=== PATIENT | male | born 1955 | race Caucasian/White ===

== ENCOUNTER 2016-06-01 11:41 | Emergency (ER) | payer SELFPAY ==
[~2016-06-01] VITALS: Ht 175.2 cm; Wt 61.7 kg
[~2016-06-01 11:41] MED LIST: ANAPROX DS550 MG PO; ASPIR LOW81 MG PO; AUGMENTIN 875 M1 TAB PO; BETIMOL5 M1 OU; CELEXA20 MG PO; CIPRO500 MG PO; CIPRODEX 0.3%-7.5 ML OT; CLINDAMYCIN HC300 MG PO; CLONIDINE HCL0.1 MG PO; CREON 60,000U/1 CAP PO; DOXYCYCLINE100 M3 PO; EFFIENT5 MG PO; FAMOTIDINE20 M1 PO; FLAGYL500 MG PO; FLORASTOR 33 MG1 CAP PO; HYDROCODONE BIT1 T11 PO; IMODIUM A-D2 M2 PO; LANTUS100 U/ML SC; LIPITOR40 MG PO; LISINOPRIL PO; LISINOPRIL10 M1 PO; LISINOPRIL10 MG PO; LISINOPRIL20 MG PO; LOPRESSOR25 MG PO; METFORMIN500 MG PO; NOVALOG INSULIN; NOVOLOG1 UNIT/0.0 SC; NOVOLOG10 ML SQ; QUESTRAN LIGHT4 GM PO; SIMVASTATIN80 MG PO; VANCOMYCIN250 MG/2.5 PO; VITAMIN B121000 MC1 PO; VITAMIN D50000 I3 PO; ZOFRAN ODT4 MG SL
[2016-06-01 12:22] LABS: BASO % 0.3 % (0.0-1.0); HEMATOCRIT 33.9 % (42.0-52.0); HEMOGLOBIN 11.4 g/dl (14.0-18.0); LYMPH # 0.7 10*3/uL (1.3-4.4); LYMPH % 9.3 % (27.0-41.0); MEAN CELL VOLUME 92.1 fl (80.0-94.0); MEAN CORPUSCULAR HGB CONC 33.6 g/dl (33.0-37.0); MEAN PLATELET VOLUME 9.2 fl (9.6-12.3); MONO # 0.4 10*3/uL (0.1-1.0); MONO % 4.8 % (3.0-9.0); NEUT # 6.2 10*3/uL (2.3-7.9); NEUT % 85.3 % (47.0-73.0); PLATELET COUNT AUTOMATED 313 10*3/uL (130-400); RED BLOOD COUNT 3.68 10*6/uL (4.50-5.90); RED CELL DISTRI WIDTH 12.9 % (0-14.5); WHITE BLOOD COUNT 7.3 10*3/uL (4.8-10.8)
[2016-06-01 12:39] LABS: ALBUMIN 2.9 gm/dl (3.1-4.5); BILIRUBIN, TOTAL 0.6 mg/dl (0.2-1.0); POTASSIUM 4.1 mmol/L (3.5-5.1)
[2016-06-01 13:18] LABS: BILIRUBIN NEGATIVE (NEGATIVE); BLOOD 2+ (NEGATIVE); CLARITY SL CLOUDY (CLEAR); COLOR YELLOW (YELLOW); GLUCOSE 3+ (NEGATIVE); KETONE 2+ (NEGATIVE); LEUKO ESTERASE NEGATIVE (NEGATIVE); NITRITE NEGATIVE (NEGATIVE); PROTEIN 3+ (NEGATIVE); SPECIFIC GRAVITY 1.025 (1.005-1.030); UROBILINOGEN 0.2 E.U./dl (0.2-1.0)
[2016-06-01 13:29] LABS: BACTERIA 2+; URINE REFLEX COMMENT YES (NO)
[2016-06-01 13:31] LABS: RBC 21-30 rbc/hpf (0-2)
[2016-06-01 13:39] LABS: COARSE GRANULAR CAST 15-20
[2016-06-01] MEDS ORDERED: HYDROCODONE BIT1 T11 PO (17:25)
[2016-06-27] MEDS ORDERED: LISINOPRIL20 MG PO (10:20)
[2016-06-27] MEDS ORDERED: CREON 120000 U-1 ECC PO ×2 (10:21→13:49)
[2016-06-27] MEDS ORDERED: ASPIRIN ADULT L81 M1 PO (10:50)
[2016-06-27] MEDS ORDERED: LANTUS100 U/ML SC (10:51)
[2016-06-27] MEDS ORDERED: PEPCID20 MG PO (10:51)
[2016-06-27] MEDS ORDERED: SIMVASTATIN80 MG PO (10:52)
[2016-06-27] MEDS ORDERED: NOVOLOG10 ML SC (10:53)
[2016-06-27] MEDS ORDERED: ATORVASTATIN CA40 M1 PO (13:53)
[2016-06-27] MEDS ORDERED: IMDUR SA30 MG PO (15:24)
[2016-06-27] MEDS ORDERED: ATORVASTATIN CA80 M1 PO (15:24)
[2016-06-27] MEDS ORDERED: LOPRESSOR25 MG PO (15:24)
[2016-06-27] MEDS ORDERED: HUMALOG100 U/ML SC (15:24)
== END 2016-06-01 17:49 | disposition home or self-care (01) ==
LOC: ED 11:41
PROVIDERS: Registered Nurse
DX: E10.65 Type 1 diabetes mellitus with hyperglycemia (principal); E86.0 Dehydration; Z79.899 Other long term (current) drug therapy; Z79.82 Long term (current) use of aspirin; Z79.4 Long term (current) use of insulin

== ENCOUNTER 2017-07-22 07:21 | Emergency (ER) | payer SELFPAY ==
[~2017-07-22 07:21] MED LIST changes: +ASPIRIN ADULT L81 M1 PO; +ATORVASTATIN CA40 M1 PO; +ATORVASTATIN CA80 M1 PO; +CREON 120000 U-1 ECC PO; +HUMALOG100 U/ML SC; +IMDUR SA30 MG PO; +NOVOLOG10 ML SC; +PEPCID20 MG PO
[2017-07-22] MEDS ORDERED: CARVEDILOL25 MG PO (07:36)
[2017-07-22 07:38] LABS: HEMATOCRIT 37.4 % (42.0-52.0); MEAN CELL VOLUME 96.9 fl (80.0-94.0); MEAN CORPUSCULAR HGB 31.1 pg (27.0-31.0); MEAN CORPUSCULAR HGB CONC 32.1 g/dl (33.0-37.0); MEAN PLATELET VOLUME 9.7 fl (9.6-12.3); NUCLEATED RED BLOOD CELL 0.2 % (0.0-0.0); PLATELET COUNT AUTOMATED 313 10*3/uL (130-400); RED BLOOD COUNT 3.86 10*6/uL (4.50-5.90); WHITE BLOOD COUNT 12.1 10*3/uL (4.8-10.8)
[2017-07-22 07:50] LABS: ACT PARTIAL THROMBO TIME 25.7 SECONDS (20.8-31.5); INTERNATIONAL NORM RATIO 0.9 (2.0-3.5)
[2017-07-22 08:00] LABS: CREATININE 2.89 mg/dL (0.70-1.30); POTASSIUM 4.3 mmol/L (3.5-5.1); TOTAL PROTEIN 5.3 gm/dL (6.4-8.2)
[2017-07-22 08:01] LABS: PLATELET SUFFICIENCY NORMAL (NORMAL); TOTAL CELLS COUNTED 100 #CELLS
[2017-07-22 08:06] LABS: CKMB 13.3 ng/ml (0.5-3.6); TROPONIN I 0.058 ng/ml (<0.045)
== END 2017-07-22 09:00 | disposition short-term general hospital (02) ==
LOC: ED 07:21
PROVIDERS: Emergency Medicine
DX: N17.9 Acute kidney failure, unspecified (principal); E87.0 Hyperosmolality and hypernatremia; E11.65 Type 2 diabetes mellitus with hyperglycemia; E87.2 Acidosis; I25.10 Atherosclerotic heart disease of native coronary artery without angina pectoris; I12.9 Hypertensive chronic kidney disease with stage 1 through stage 4 chronic kidney disease, or unspecified chronic kidney disease; E11.22 Type 2 diabetes mellitus with diabetic chronic kidney disease; N18.3 Chronic kidney disease, stage 3 (moderate); I25.2 Old myocardial infarction; R74.0 Nonspecific elevation of levels of transaminase and lactic acid dehydrogenase [LDH]; Z98.890 Other specified postprocedural states; Z95.5 Presence of coronary angioplasty implant and graft; Z79.82 Long term (current) use of aspirin; Z79.4 Long term (current) use of insulin; Z79.899 Other long term (current) drug therapy

== ENCOUNTER 2017-08-21 05:03 | Inpatient (IN) | payer BC ==
[2017-08-21] VITALS (8 sets, daily range): BP systolic 119–175; BP diastolic 55–112
[~2017-08-21] VITALS: Ht 175.2 cm; Wt 73.1 kg
--- NOTE | ~2017-08-21 | O ---
[place], [place] OPERATIVE NOTE NAME: ROXANA HEDRICK UNIT #: [id number] ROOM: 517 DOCTOR: ANGEL HARRIS MD BIRTHDATE: [birth year] DOS: 08/22/2017 GASTROENDOSCOPIC REPORT A 61-year-old patient who presented with chief complaint of abnormal liver function tests, right upper quadrant pain, nausea, vomiting, and undergoing investigation. INDICATIONS: The patient has been sonographically found to have dilated common duct 1.8 mm as well as choledocholithiasis. PROCEDURE: Today's procedure part of investigation is ERCP, papillotomy, balloon sweep of common duct, and common bile duct stent. PREMEDICATION: Versed and Diprivan. SCOPE: Olympus side-viewing duodenoscope. REPORT: After putting the patient in left lateral position and application of lubricant to the scope, scope was introduced. Thereafter, under direct visualization advanced through the length of esophagus into gastric pouch into duodenal bulb. Papilla of water was defined. Selective cannulization of common duct was undertaken. Guidewire was introduced. Papillary stenosis experienced. Papillotomy was performed at 1 o'clock position and opacification of ducts reveal hepatic radicles and common hepatic duct and common bile duct. At this stage, a balloon size 12 was introduced into the common duct and swept multiple times and that was followed with balloon size 15. No deficiencies in common duct was noticed except dilation. At this stage, a stent size 10 x 9 was utilized and delivered into common bile duct and common hepatic duct. Position verified. Air was suctioned out. The patient was extubated, emptying of the duct gradually was noticed. IMPRESSION: Papillary stenosis, status post papillotomy, status post balloon sweep of common duct, status post common duct stent. PLAN AND DISCUSSION: This patient requires removal of the stent 2-3 months. Thank you very much indeed. [place], [place] OPERATIVE NOTE NAME: ROXANA HEDRICK UNIT #: [id number] ROOM: 517 DOCTOR: ANGEL HARRIS MD BIRTHDATE: [birth year] ANGEL HARRIS MD CM:OPRECORD:OPERATIVE NOTE 180 18 ANGEL HARRIS MD 08/22/171817 interface
--- NOTE | ~2017-08-21 | CON ---
[place], [place] REPORT OF CONSULTATION [id number] UNIT #: [id number] ROOM: 517 DOCTOR: ANGEL HARRIS MD BIRTHDATE: [birth year] DOS: 08/22/2017 HISTORY OF PRESENT ILLNESS: This is a 61-year-old patient, who has presented with relentless nausea and vomiting, to be admitted for definitive evaluation. The patient is known to have cholecystectomy about a year and half ago; however, basic sonographic studies were done. He was found to have a mild intrahepatic biliary dilation, correlate clinically for symptoms and MRCP was recommended. Trace amount of perihepatic ascites was also reported. His common bile duct was 1.8 cm and choledocholithiasis was of concern. Comprehensive metabolic panel has fluctuating glucose level and hypoglycemia that required half amp of D50 and D5 normal saline has been also supportively given. His BUN and creatinine were 30 and 2.57. His liver function test with abnormal GOT, GPT of 60 and 146, alkaline phosphatase 143 with a total bilirubin of 0.3. Troponin was normal. His electrolytes remain normal. His chest x-ray was with no acute intrathoracic pathology. His H and H were 9 and 30, his white blood cell was 9, his platelet count was 241; however, he has been on aspirin and Plavix. His followup H and H 8.8 and 26 and his hemoglobin A1c elevation noticed. His liver function test continues to be abnormal. His vitamin D was 9.9. PAST MEDICAL HISTORY: Renal insufficiency, chronic pancreatitis, coronary artery disease, old history of myocardial infarction, hypertension, hypertriglyceridemia, insulin-dependent diabetes mellitus, non-ST elevation myocardial infarction. PAST SURGICAL HISTORY: Hernia repair, cardiac catheterization, coronary artery stent, cholecystectomy. SOCIAL HISTORY: Nonsmoker, nonalcohol consumer. FAMILY HISTORY: Diabetes. ALLERGIES: To no known medications. MEDICATIONS: Medication list has been reviewed including aspirin and Plavix that are on hold at the present time. REVIEW OF SYSTEMS: HEENT: Denies double vision, blurred vision. RESPIRATORY: Denies shortness of breath. CARDIOVASCULAR: Denies chest pain. DIGESTIVE SYSTEM: Recurrent nausea, vomiting, and abdominal pain. PHYSICAL EXAMINATION: VITAL SIGNS: Stable. HEENT: Within normal limit. NECK: Supple. No thyromegaly, no cervical lymphadenopathy. CHEST: Symmetric anatomy, equal expansion. No wheeze, no rhonchi. HEART: Normal sinus rhythm. No gallop, no murmur. ABDOMEN: Soft. No hepato-organomegaly. Bowel sounds present. No pulsatile mass. [place], [place] REPORT OF CONSULTATION NAME: ROXANA HEDRICK UNIT #: [id number] ROOM: [facility] DOCTOR: ANGEL HARRIS MD BIRTHDATE: [birth year] EXTREMITIES: 1+ pedal edema. NEUROLOGIC: Alert, oriented to time, place, and person. LABORATORY DATA: Labs reviewed, records reviewed. IMPRESSION: 1. Choledocholithiasis. 2. Abnormal liver function test. 3. Renal insufficiency. 4. Coronary artery disease. 5. Diabetes mellitus. 6. Recurrent pancreatitis with a history of hypertriglyceridemia could be associated. PLAN AND DISCUSSION: Dilated common bile duct of 1.8 is of concern. We are going to try to see if he can do endoscopic retrograde cholangiopancreatography and therapeutics for extraction of common duct stone and placement of stent if necessary. Workup is in progress. Possible complication of infection, perforation, bleeding has been discussed with the family. Workup reassessed. ANGEL HARRIS MD CM:CONSTR:REPORT OF CONSULTATION 1430 08/23/17 0436 interface
[~2017-08-21 05:03] MED LIST changes: +CARVEDILOL25 MG PO; +LANTUS SOL100 UNIT/1 SC
[2017-08-21] MEDS ORDERED: AMLODIPINE BESY10 MG PO (05:22)
[2017-08-21] MEDS ORDERED: HYDRALAZINE HYD50 MG PO (05:23)
[2017-08-21] MEDS ORDERED: SIMVASTATIN80 MG PO (05:23)
[2017-08-21] MEDS ORDERED: IMDUR SA30 MG PO (05:25)
[2017-08-21] MEDS ORDERED: PROBIOTIC250 MG PO (05:26)
[2017-08-21 05:55] LABS: BASO % 0.3 % (0.0-1.0); EOS % 0.4 % (1.0-4.0); HEMATOCRIT 30.1 % (42.0-52.0); HEMOGLOBIN 9.9 g/dl (14.0-18.0); LYMPH # 0.7 10*3/uL (1.3-4.4); LYMPH % 7.3 % (27.0-41.0); MEAN CELL VOLUME 95.3 fl (80.0-94.0); MEAN CORPUSCULAR HGB 31.3 pg (27.0-31.0); MEAN CORPUSCULAR HGB CONC 32.9 g/dl (33.0-37.0); MEAN PLATELET VOLUME 9.3 fl (9.6-12.3); MONO # 0.5 10*3/uL (0.1-1.0); MONO % 4.9 % (3.0-9.0); NEUT # 8.5 10*3/uL (2.3-7.9); NEUT % 86.5 % (47.0-73.0); PLATELET COUNT AUTOMATED 241 10*3/uL (130-400); RED BLOOD COUNT 3.16 10*6/uL (4.50-5.90); RED CELL DISTRI WIDTH 13.5 % (0-14.5); WHITE BLOOD COUNT 9.8 10*3/uL (4.8-10.8)
[2017-08-21 06:03] LABS: ACT PARTIAL THROMBO TIME 26.5 SECONDS (20.8-31.5)
[2017-08-21 06:07] LABS: ALBUMIN 2.6 gm/dl (3.1-4.5); ALKALINE PHOSPHATASE 143 U/L (45-117); BUN 30 mg/dl (7-24); CHLORIDE 114 mmol/L (98-107); CREATININE 2.57 mg/dL (0.70-1.30); SGOT/AST 60 IU/L (3-35); SGPT/ALT 146 U/L (12-78); SODIUM 143 mmol/L (136-145); TOTAL PROTEIN 5.7 gm/dL (6.4-8.2)
[2017-08-21 06:17] LABS: TROPONIN I < 0.015 ng/ml (<0.045)
[2017-08-22] VITALS (11 sets, daily range): BP systolic 126–169; BP diastolic 58–77
[2017-08-22 06:55] LABS: BASO % 0.4 % (0.0-1.0); EOS # 0.1 10*3/uL (0.0-0.4); HEMATOCRIT 26.2 % (42.0-52.0); HEMOGLOBIN 8.8 g/dl (14.0-18.0); LYMPH % 13.8 % (27.0-41.0); MEAN CELL VOLUME 94.6 fl (80.0-94.0); MEAN CORPUSCULAR HGB 31.8 pg (27.0-31.0); MEAN CORPUSCULAR HGB CONC 33.6 g/dl (33.0-37.0); MONO # 0.5 10*3/uL (0.1-1.0); MONO % 7.2 % (3.0-9.0); NEUT # 5.6 10*3/uL (2.3-7.9); NEUT % 77.3 % (47.0-73.0); PLATELET COUNT AUTOMATED 203 10*3/uL (130-400); RED BLOOD COUNT 2.77 10*6/uL (4.50-5.90); RED CELL DISTRI WIDTH 13.3 % (0-14.5); WHITE BLOOD COUNT 7.2 10*3/uL (4.8-10.8)
[2017-08-22 07:26] LABS: ALBUMIN 2.2 gm/dl (3.1-4.5); CREATININE 2.34 mg/dL (0.70-1.30); PHOSPHOROUS 3.8 mg/dL (2.5-4.9); POTASSIUM 4.1 mmol/L (3.5-5.1)
[2017-08-22 07:31] LABS: THYROID STIM HORMONE (HS) 2.01 uIU/ml (0.358-4.75); TOTAL PROTEIN 4.7 gm/dL (6.4-8.2)
[2017-08-22 08:23] LABS: VITAMIN D, 25-HYDROXY 9.9 ng/mL (30-100)
[2017-08-22 19:53] LABS: BASO % 0.3 % (0.0-1.0); EOS # 0.1 10*3/uL (0.0-0.4); HEMATOCRIT 23.5 % (42.0-52.0); HEMOGLOBIN 7.6 g/dl (14.0-18.0); LYMPH % 17.1 % (27.0-41.0); MEAN CELL VOLUME 95.5 fl (80.0-94.0); MEAN CORPUSCULAR HGB 30.9 pg (27.0-31.0); MEAN CORPUSCULAR HGB CONC 32.3 g/dl (33.0-37.0); MEAN PLATELET VOLUME 9.7 fl (9.6-12.3); MONO # 0.4 10*3/uL (0.1-1.0); MONO % 6.8 % (3.0-9.0); NEUT # 4.5 10*3/uL (2.3-7.9); NEUT % 74.3 % (47.0-73.0); PLATELET COUNT AUTOMATED 219 10*3/uL (130-400); RED BLOOD COUNT 2.46 10*6/uL (4.50-5.90); RED CELL DISTRI WIDTH 13.7 % (0-14.5)
[2017-08-23] VITALS: BP 140/75
[2017-08-23 07:02] LABS: BASO % 0.4 % (0.0-1.0); EOS # 0.1 10*3/uL (0.0-0.4); EOS % 1.1 % (1.0-4.0); HEMATOCRIT 24.1 % (42.0-52.0); HEMOGLOBIN 7.9 g/dl (14.0-18.0); LYMPH # 0.9 10*3/uL (1.3-4.4); LYMPH % 12.2 % (27.0-41.0); MEAN CELL VOLUME 97.2 fl (80.0-94.0); MEAN CORPUSCULAR HGB 31.9 pg (27.0-31.0); MEAN CORPUSCULAR HGB CONC 32.8 g/dl (33.0-37.0); MONO # 0.4 10*3/uL (0.1-1.0); MONO % 5.6 % (3.0-9.0); NEUT % 80.3 % (47.0-73.0); PLATELET COUNT AUTOMATED 223 10*3/uL (130-400); RED BLOOD COUNT 2.48 10*6/uL (4.50-5.90); RED CELL DISTRI WIDTH 13.6 % (0-14.5); WHITE BLOOD COUNT 7.5 10*3/uL (4.8-10.8)
[2017-08-23 07:08] LABS: CREATININE 2.18 mg/dL (0.70-1.30); POTASSIUM 4.3 mmol/L (3.5-5.1); TOTAL PROTEIN 4.7 gm/dL (6.4-8.2)
[2017-08-23 08:00] VITALS: BP 154/72
[2017-08-23 12:00] VITALS: BP 143/63
[2017-08-23] MEDS ORDERED: VITAMIN D350000 UNIT PO (14:29)
== END 2017-08-23 17:08 | disposition home or self-care (01) | DRG 917 ==
LOC: ED 05:03 → EDHOLD 06:31 → 5E 06:31
PROVIDERS: Family Medicine; Internal Medicine Gastroenterology; Internal Medicine Nephrology; Student in an Organized Health Care Education/Training Program
DX: T38.3X4A Poisoning by insulin and oral hypoglycemic [antidiabetic] drugs, undetermined, initial encounter (principal); E43 Unspecified severe protein-calorie malnutrition; N17.0 Acute kidney failure with tubular necrosis; R65.11 Systemic inflammatory response syndrome (SIRS) of non-infectious origin with acute organ dysfunction; L89.890 Pressure ulcer of other site, unstageable; K80.51 Calculus of bile duct without cholangitis or cholecystitis with obstruction; E11.22 Type 2 diabetes mellitus with diabetic chronic kidney disease; L89.892 Pressure ulcer of other site, stage 2; K86.1 Other chronic pancreatitis; E11.649 Type 2 diabetes mellitus with hypoglycemia without coma; R74.0 Nonspecific elevation of levels of transaminase and lactic acid dehydrogenase [LDH]; I12.9 Hypertensive chronic kidney disease with stage 1 through stage 4 chronic kidney disease, or unspecified chronic kidney disease; D64.9 Anemia, unspecified; R94.5 Abnormal results of liver function studies; N18.3 Chronic kidney disease, stage 3 (moderate); Z79.899 Other long term (current) drug therapy; Z79.4 Long term (current) use of insulin; Z79.82 Long term (current) use of aspirin; I25.2 Old myocardial infarction; Z95.5 Presence of coronary angioplasty implant and graft; Z83.3 Family history of diabetes mellitus; Y92.098 Other place in other non-institutional residence as the place of occurrence of the external cause; Z90.49 Acquired absence of other specified parts of digestive tract

== ENCOUNTER → 2017-09-28 | Outpatient (CLI) | payer BC ==
[~2017-09-28] MED LIST changes: +AMLODIPINE BESY10 MG PO; +HYDRALAZINE HYD50 MG PO; +PROBIOTIC250 MG PO; +VITAMIN D350000 UNIT PO
== END | disposition home or self-care (01) ==
LOC: LAB 11:00
DX: A04.72 Enterocolitis due to Clostridium difficile, not specified as recurrent (principal)

== ENCOUNTER → 2017-10-05 | Outpatient (CLI) | payer BC | END | disposition home or self-care (01) | LOC: LAB 14:12 | DX: R19.7 Diarrhea, unspecified (principal) ==

== ENCOUNTER → 2017-10-10 | Day surgery (SDC) | payer BC ==
[~2017-10-10] VITALS: Ht 175.2 cm; Wt 63.0 kg
[~2017-10-10] MED LIST changes: +ASPIRIN81 M1 PO; +PLAVIX75 M1 PO; +TRAMADOL HCL50 MG PO
--- NOTE | ~2017-10-10 | O ---
[place], [place] OPERATIVE NOTE [id number] UNIT #: [id number] ROOM: DOCTOR: KIMBERLY ETIENNESIGIFREDOSAN FRANCISCOGEORGIA BIRTHDATE: [birth year] DOS: 10/10/2017 GASTROENDOSCOPIC REPORT INDICATIONS: This is a 61-year-old, who has presented with chief complaint of 2 years of persistent diarrhea. He is taking between 6-8 tablets of Imodium per day. His stool has been sent out for ova and parasite and C. diff evaluation multiple times and it has been negative as recent as a week ago. PAST MEDICAL HISTORY: Associated with diabetes mellitus, hyperlipidemia, hypertension, renal insufficiency, and coronary artery disease. PAST SURGICAL HISTORY: Cholecystectomy, cardiac stent, biliary stent that has been removed. SOCIAL HISTORY: Stopped 10 years ago smoking and no alcohol consumption. FAMILY HISTORY: Noncontributory. ALLERGIES: To no known medication. PROCEDURE: Today's procedure part of investigation is colonoscopy plus terminal ileoscopy plus 3 polypoid lesions snare and snare and piecemeal polypectomy. PREMEDICATIONS: Versed and propofol. SCOPE: Olympus folding colonoscope 10L video. REPORT: After putting the patient in left lateral position and application of lubricant to the rectal pouch and digital examination, scope was introduced. Thereafter, under direct visualization, advanced through the length of colon without difficulty. Scattered diverticulosis was identified, this is rare in numbers, sessile polypoid lesions x 3 in cecum with piecemeal polypectomy and snare polypectomy was addressed and removed. Terminal ileum was very stenotic; however, with appropriate maneuver, this overcame and terminal ileum was explored and advancing the scope approximately 25 cm into the terminal ileum. There was no evidence of Crohn's disease. Scope was withdrawn back to the cecum and random biopsies of the colon from ascending, transverse colon and descending colon obtained. Air was suctioned out. The patient was extubated, tolerated the procedure well. IMPRESSION: Colonoscopy with diverticulosis. FINDINGS: Multiple polyps, status post 3 polyps snare and piecemeal polypectomy removal, status post random biopsy of the colon, ruling out collagenous versus lymphocytic colitis. PLAN AND DISCUSSION: Etiology of diarrhea in this gentleman remains ambiguous. We are going to organize a CT scan of the abdomen and pelvis as well as chromogranin A level as well as we are going to assure that his endomysial [place], [place] OPERATIVE NOTE NAME: ROXANA HEDRICK UNIT #: [id number] ROOM: DOCTOR: KIMBERLY ETIENNE,ANGEL BIRTHDATE: [birth year] antibody is going to be available to assure that a celiac disease is ruled out as well as assuring that there is no neuroendocrine tumors as well. He has multi-systemic disease including diabetes mellitus, renal insufficiency, and old history of C. diff 2 years ago; however, the C. diff repeatedly has been negative at this time. Workup is in progress. I am going to start him on a trial of probiotics, Florastor 250 mg b.i.d., and we are going to start him again on Questran 1 pack b.i.d. and clinically reassess as outpatient and further workup as may be necessary. CT scan has been reviewed and evidence of pancreatitis is noticed. Creon 12 one tablet with each meal is going to be added. Workup as outpatient continues. Follow-up colonoscopy in 10 years unless patient has symptoms for which follow-up should be sooner. ANGEL HARRIS MD CM:OPRECORD:OPERATIVE NOTE [id number] [id number] ANGEL HARRIS MD 11/05/17 1754 interface
[2017-10-10 07:34] VITALS: BP 138/60
[2017-10-10 08:56] VITALS: BP 111/67
[2017-10-10 09:28] VITALS: BP 133/52
== END | disposition home or self-care (01) ==
LOC: SDC 03:41
DX: D12.0 Benign neoplasm of cecum (principal); D12.3 Benign neoplasm of transverse colon; I10 Essential (primary) hypertension; I25.10 Atherosclerotic heart disease of native coronary artery without angina pectoris; I25.2 Old myocardial infarction; E11.9 Type 2 diabetes mellitus without complications; E78.5 Hyperlipidemia, unspecified; N28.9 Disorder of kidney and ureter, unspecified; Z90.49 Acquired absence of other specified parts of digestive tract; Z95.5 Presence of coronary angioplasty implant and graft; Z79.891 Long term (current) use of opiate analgesic; Z79.899 Other long term (current) drug therapy; Z79.4 Long term (current) use of insulin; Z98.890 Other specified postprocedural states

== ENCOUNTER 2018-03-09 13:18 | Inpatient (IN) | payer SELFPAY ==
[~2018-03-09] VITALS: Ht 175.3 cm; Wt 58.8 kg
[2018-03-09] VITALS (8 sets, daily range): BP systolic 167–220; BP diastolic 80–105
--- NOTE | ~2018-03-09 | CON ---
[place], [place] REPORT OF CONSULTATION NAME: ROXANA HEDRICK UNIT #: [id number] ROOM: 526 DOCTOR: DAVONTE PITTMAN MD BIRTHDATE: [birth year] DOS: 03/10/2018 NEPHROLOGY CONSULTATION REASON FOR CONSULTATION: Chronic kidney disease. HISTORY OF PRESENT ILLNESS: A 62-year-old male with past medical history of known chronic kidney disease, hypertension, coronary artery disease, diabetes. The patient presented to the hospital with nausea, vomiting and diarrhea. Apparently, he has had some GI issues rather recently. The details are not clear. It seems at home he had high blood pressure that was reported to be over 200 systolic at home. He had high blood glucose levels as well. He came to the hospital and was found to be hypertensive and was given acute treatment and he had adequate response. His creatinine level was noted to be 2.6 on admission. The patient was started on IV fluids and admitted. He seems to be doing better today. His creatinine today is in the range of below 2s, which appears to be his baseline. The patient does have known chronic kidney disease dating back a few years. Earlier this year, he had creatinine levels in the low 2s, according to the notes that I reviewed. He does follow with the [facility] for his CKD. He otherwise was a fairly poor historian. He tells me he has memory problems and was unable to elaborate on a lot of things. He currently denies nausea, vomiting, fevers or chills. He tells me he does feel a little bit better. ALLERGIES: No known drug allergies. HOME MEDICATIONS: Include amlodipine, Creon, aspirin, carvedilol, Plavix, hydralazine, insulin, probiotic, Imdur, simvastatin and tramadol. PAST MEDICAL HISTORY: 1. Known chronic kidney disease as stated above. 2. Coronary artery disease. 3. Choledocholithiasis. 4. Chronic pancreatitis. 5. Coronary artery disease, history of WI. 6. Hypertension. 7. Hyperlipidemia. 8. Diabetes mellitus. PAST SURGICAL HISTORY: 1. History of hernia repair. 2. Cardiac catheterization. 3. Colonoscopy. 4. Cardiac stenting. FAMILY HISTORY: Positive for diabetes, otherwise no CKD and noncontributory. SOCIAL HISTORY: Denies current tobacco, alcohol or illicit drugs. REVIEW OF SYSTEMS: As per HPI, otherwise, a 10-point review of systems was reviewed and was negative. [place], [place] REPORT OF CONSULTATION NAME: ROXANA HEDRICK UNIT #: [id number] ROOM: 526 DOCTOR: DAVONTE PITTMAN MD BIRTHDATE: [birth year] PHYSICAL EXAMINATION: VITAL SIGNS: Temperature afebrile, pulse 67, respiratory rate 18, blood pressure 116/67. GENERAL: He is alert, awake, oriented x 3, no acute distress. HEENT: Shows no JVD. Sclerae are anicteric. Mucous membranes appear dry. Pharynx is clear. NECK: Supple. Trachea was midline. There was no neck lymphadenopathy or thyromegaly. LUNGS: Fairly clear. No crackles, wheezes or rales. No tactile fremitus. He is not using accessory muscles of respiration. HEART: S1, S2. No rub, thrill or gallop. ABDOMEN: Soft and nontender. There is no organomegaly or rigidity, rebound or guarding. There is no CVA tenderness. EXTREMITIES: Had no edema. There is no lower extremity lymphadenopathy. Distal pulses are 2+. SKIN: Showed no overt rash. There was no petechia or purpura. Skin temperature was warm. NEUROLOGIC: Awake, alert, following commands. Cranial nerves intact. LABORATORY DATA: Sodium 144, potassium 4.1, CO2 of 17, chloride 120, calcium 7.1 with an albumin of 1.9, phosphorus 3.8, magnesium 1.6, hemoglobin 8.7, white count of 8.4, platelets 207. IMPRESSION: 1. Acute on chronic kidney disease. The patient appears to have a baseline creatinine in the low 2s range. He had a slight acute element likely related to prerenal factors. He has known chronic kidney disease, suspected to be from diabetes and hypertension, although this is not confirmed. 2. Nausea, vomiting, diarrhea. 3. Metabolic acidosis, which appears to be non-anion gap, which may be related to diarrhea. 4. Severe hypoalbuminemia. 5. Anemia. 6. Chronic pancreatitis. 7. Coronary artery disease. 8. Diabetes mellitus. 9. Hypertension with accelerated hypertension that has improved/resolved. PLAN: 1. I agree with the current management. Would continue IV fluids. Would consider changing to a bicarbonate drip in view of the acidosis. 2. Dose meds for current creatinine clearance. 3. Agree with current blood pressure medications. Avoid hypotension. 4. Replace electrolytes as needed. 5. Avoid nephrotoxic agents. Thank you for this consultation. We will follow with you. [place], [place] REPORT OF CONSULTATION NAME: ROXANA HEDRICK UNIT #: [id number] ROOM: 526 DOCTOR: ZAIN ETIENNE,DAVONTE [place] BIRTHDATE: [birth year] DAVONTE PITTMAN MD CM:CONSTR:REPORT OF CONSULTATION 1440 03/11/18 0258 interface
--- NOTE | ~2018-03-09 | CON ---
[place], [place] REPORT OF CONSULTATION NAME: ROXANA HEDRICK UNIT #: [id number] ROOM: 526 DOCTOR: ANGEL HARRIS MD BIRTHDATE: [birth year] DOS: 03/11/2018 HISTORY OF PRESENT ILLNESS: This is a 62-year-old patient who was presented with chief complaint of cephalalgia and abdominal pain to Emergency Room. The patient was appropriately addressed. Apparently, they found hypertensive crisis as well as a basic chemistry was done. He was fine. Hyperglycemia and BUN and creatinine elevation of 36 and 2.6 with GFR of 29. Therefore, the patient was admitted with hyperglycemic, hyperosmolar, nonketotic. The chest x-ray was benign. CBC differential, borderline anemia, glucose was corrected. After reassessment his H and H dropped. His hemoglobin A1c was 8.3. He tells me that his girlfriend is managing his medications for him. Ultrasound of the kidneys shows chronic renal insult. Blood cultures were noticed. Urine culture was negative. PAST MEDICAL HISTORY: Coronary artery disease, cholelithiasis, pancreatitis, hyperlipidemia, hypertension, diabetes mellitus, uncontrolled, chronic renal insufficiency. PAST SURGICAL HISTORY: Cardiac catheterization, cardiac stenting, hernia repair. His stent is 2 years old and 1 stent. SOCIAL HISTORY: Nonsmoker, nonalcohol consumer. FAMILY HISTORY: Noncontributory. REVIEW OF SYSTEMS: HEENT: Denies double vision, blurred vision. RESPIRATORY: No shortness of breath. CARDIOVASCULAR: No chest pain. DIGESTIVE SYSTEM: Nonspecific abdominal pain. CARDIOVASCULAR: Otherwise initial headache and hypertensive crisis. PHYSICAL EXAMINATION: GENERAL: [place] person, comfortable, nontoxic patient. HEENT: Head normocephalic, nontraumatic. Eyes: Pupils round and reactive. Mouth and buccal mucosa benign. NECK: Supple, no thyromegaly. CHEST: Symmetric anatomy, equal expansion. No wheeze, no rhonchi. HEART: Normal sinus rhythm, no gallop, no murmur. ABDOMEN: Soft. No hepato-organomegaly. Bowel sounds present. No pulsatile mass. EXTREMITIES: No cyanosis, no pedal edema. No ulceration. NEUROLOGIC: Fully alert, oriented to time, place, person. IMPRESSION: 1. Hyperglycemic nonketotic hyperosmolar acidosis, renal insufficiency, anemia with drop in H and H, coronary artery disease and one stent 2 years old. 2. Hyperglycemia. Has been controlled. Actually, at times, he has experienced hypoglycemic events. Ultrasound of kidneys was reviewed. The renal cortices consistent with intrinsic renal disease. [place], [place] REPORT OF CONSULTATION NAME: ROXANA HEDRICK UNIT #: [id number] ROOM: 526 DOCTOR: KIMBERLY ETIENNE,ANGEL BIRTHDATE: [birth year] PLAN AND DISCUSSION: We have offered the patient to have at least endoscopic evaluation of upper GI tract due to the drop in H and H. He has refused and we have therefore proceeded with feeding him is 1800 ADA diet. He is going to be kept on Protonix. He looks good. He does not look distressed and follow up with Nephrology team. ANGEL HARRIS MD CM:CONSTR:REPORT OF CONSULTATION 07 03/12/18 0703 interface
--- NOTE | ~2018-03-09 | EKG ---
[place], [place] ELECTROCARDIOGRAM REPORT NAME: ROXANA HEDRICK UNIT #: [id number] ROOM: 526 DOCTOR: MARLIN DRAFT REPORT BIRTHDATE: [birth year] [facility] Test Date: 2018-03-09 Test Time: 13:48:30 Pat Name: ROXANA HEDRICK Department: ER Room: 526 Gender: M Skid Worker: TIBURCIO : 1955 Requested By: CHAVA MCKEE Order Number: [id number] Reading MD: Joelle Valdes MD Measurements Intervals [place] Rate: 86 P: 68 VT: 175 QRS: -7 QRSD: 82 T: 64 QT: 370 QTc: 443 Interpretive Statements Sinus rhythm Minimal ST depression, anterolateral leads Baseline wander in lead(s) I,III,aVL,V6 Electronically Signed On 03-10-2018 5:34:55 PDT by Joelle Valdes MD CM:EKGRPT:ELECTROCARDIOGRAM REPORT [id number] CHAVA MCKEE EPIPHANY DRAFT REPORT CHAVA MCKEE
[2018-03-09 14:12] LABS: HEMATOCRIT 29.9 % (42.0-52.0); HEMOGLOBIN 10.1 g/dl (14.0-18.0); MEAN CELL VOLUME 93.7 fl (80.0-94.0); MEAN CORPUSCULAR HGB 31.7 pg (27.0-31.0); MEAN CORPUSCULAR HGB CONC 33.8 g/dl (33.0-37.0); MEAN PLATELET VOLUME 9.5 fl (9.6-12.3); PLATELET COUNT AUTOMATED 260 10*3/uL (130-400); RED BLOOD COUNT 3.19 10*6/uL (4.50-5.90); RED CELL DISTRI WIDTH 13.3 % (0-14.5); WHITE BLOOD COUNT 12.3 10*3/uL (4.8-10.8)
[2018-03-09 14:17] LABS: ALBUMIN 2.4 gm/dl (3.1-4.5); CREATININE 2.68 mg/dL (0.70-1.30); POTASSIUM 4.9 mmol/L (3.5-5.1); TOTAL PROTEIN 6.5 gm/dL (6.4-8.2); TROPONIN I 0.042 ng/ml (<0.045)
[2018-03-09 14:19] LABS: ACT PARTIAL THROMBO TIME 25.5 SECONDS (20.8-31.5)
[2018-03-09 14:30] LABS: BILIRUBIN NEGATIVE (NEGATIVE); BLOOD 1+ (NEGATIVE); CLARITY CLEAR (CLEAR); COLOR YELLOW (YELLOW); GLUCOSE 3+ (NEGATIVE); KETONE NEGATIVE (NEGATIVE); LEUKO ESTERASE NEGATIVE (NEGATIVE); NITRITE NEGATIVE (NEGATIVE); PH 5.5 (5.0-9.0); SPECIFIC GRAVITY 1.025 (1.005-1.030); UROBILINOGEN 0.2 E.U./dl (0.2-1.0)
[2018-03-09 14:37] LABS: BASOPHILS 1 % (0-1); BURR CELLS FEW; PLATELET SUFFICIENCY NORMAL (NORMAL); TOTAL CELLS COUNTED 100 #CELLS
[2018-03-09 14:50] LABS: BACTERIA 2+; EPITHELIAL CELLS 0-2; RBC 0-2 rbc/hpf (0-2)
[2018-03-09 14:51] LABS: HYALINE CAST 0-2
[2018-03-09 16:27] LABS: URINE CREATININE RANDOM 29.4 mg/dL
[2018-03-10] VITALS: BP 145/71
[2018-03-10 06:26] LABS: BASO % 0.1 % (0.0-1.0); EOS # 0.1 10*3/uL (0.0-0.4); EOS % 0.6 % (1.0-4.0); HEMATOCRIT 25.2 % (42.0-52.0); HEMOGLOBIN 8.7 g/dl (14.0-18.0); LYMPH % 11.9 % (27.0-41.0); MEAN CELL VOLUME 93.7 fl (80.0-94.0); MEAN CORPUSCULAR HGB 32.3 pg (27.0-31.0); MEAN CORPUSCULAR HGB CONC 34.5 g/dl (33.0-37.0); MEAN PLATELET VOLUME 9.5 fl (9.6-12.3); MONO # 0.5 10*3/uL (0.1-1.0); MONO % 5.7 % (3.0-9.0); NEUT # 6.8 10*3/uL (2.3-7.9); NEUT % 81.5 % (47.0-73.0); PLATELET COUNT AUTOMATED 207 10*3/uL (130-400); RED BLOOD COUNT 2.69 10*6/uL (4.50-5.90); RED CELL DISTRI WIDTH 13.9 % (0-14.5); WHITE BLOOD COUNT 8.4 10*3/uL (4.8-10.8)
[2018-03-10 07:02] LABS: ALBUMIN 1.9 gm/dl (3.1-4.5); CREATININE 2.12 mg/dL (0.70-1.30); PHOSPHOROUS 3.8 mg/dL (2.5-4.9); POTASSIUM 4.1 mmol/L (3.5-5.1); TOTAL PROTEIN 4.8 gm/dL (6.4-8.2)
[2018-03-10 07:08] LABS: FREE T4 0.84 ng/dl (0.76-1.46); THYROID STIM HORMONE (HS) 2.16 uIU/ml (0.358-4.75)
[2018-03-10 07:54] LABS: VITAMIN D, 25-HYDROXY 21.7 ng/mL (30-100)
[2018-03-10 08:00] VITALS: BP 166/80
[2018-03-10 12:00] VITALS: BP 116/67
[2018-03-10 16:00] VITALS: BP 119/50; BP 166/80
[2018-03-10 20:00] VITALS: BP 127/63; BP 159/94
[2018-03-11] VITALS: BP 127/65
[2018-03-11 06:22] LABS: BASO % 0.5 % (0.0-1.0); EOS # 0.1 10*3/uL (0.0-0.4); EOS % 1.2 % (1.0-4.0); HEMATOCRIT 22.1 % (42.0-52.0); HEMOGLOBIN 7.5 g/dl (14.0-18.0); LYMPH # 1.1 10*3/uL (1.3-4.4); LYMPH % 19.3 % (27.0-41.0); MEAN CORPUSCULAR HGB 31.9 pg (27.0-31.0); MEAN CORPUSCULAR HGB CONC 33.9 g/dl (33.0-37.0); MEAN PLATELET VOLUME 9.5 fl (9.6-12.3); MONO # 0.4 10*3/uL (0.1-1.0); MONO % 6.2 % (3.0-9.0); NEUT # 4.2 10*3/uL (2.3-7.9); NEUT % 72.6 % (47.0-73.0); PLATELET COUNT AUTOMATED 183 10*3/uL (130-400); RED BLOOD COUNT 2.35 10*6/uL (4.50-5.90); RED CELL DISTRI WIDTH 14.3 % (0-14.5); WHITE BLOOD COUNT 5.8 10*3/uL (4.8-10.8)
[2018-03-11 06:32] LABS: CREATININE 2.2 mg/dL (0.70-1.30); PHOSPHOROUS 3.6 mg/dL (2.5-4.9); POTASSIUM 4.2 mmol/L (3.5-5.1)
[2018-03-11 08:00] VITALS: BP 130/60; BP 134/68
[2018-03-11 12:00] VITALS: BP 132/66
[2018-03-11 16:00] VITALS: BP 150/72
[2018-03-11 20:00] VITALS: BP 149/75
[2018-03-12] VITALS: BP 120/61
[2018-03-12 06:52] LABS: BASO % 0.4 % (0.0-1.0); EOS # 0.1 10*3/uL (0.0-0.4); EOS % 1.2 % (1.0-4.0); LYMPH # 0.9 10*3/uL (1.3-4.4); LYMPH % 13.2 % (27.0-41.0); MEAN CELL VOLUME 95.7 fl (80.0-94.0); MEAN CORPUSCULAR HGB CONC 34.5 g/dl (33.0-37.0); MEAN PLATELET VOLUME 9.7 fl (9.6-12.3); MONO # 0.3 10*3/uL (0.1-1.0); MONO % 3.9 % (3.0-9.0); NEUT # 5.4 10*3/uL (2.3-7.9); NEUT % 80.7 % (47.0-73.0); RED CELL DISTRI WIDTH 14.3 % (0-14.5); WHITE BLOOD COUNT 6.7 10*3/uL (4.8-10.8)
[2018-03-12 06:58] LABS: ALBUMIN 2.2 gm/dl (3.1-4.5); CREATININE 2.45 mg/dL (0.70-1.30); PHOSPHOROUS 3.9 mg/dL (2.5-4.9); POTASSIUM 4.1 mmol/L (3.5-5.1); TOTAL PROTEIN 5.7 gm/dL (6.4-8.2)
[2018-03-12 07:18] LABS: HEMATOCRIT 28.7 % (42.0-52.0); HEMOGLOBIN 9.9 g/dl (14.0-18.0); PLATELET COUNT AUTOMATED 271 10*3/uL (130-400)
[2018-03-12 08:00] VITALS: BP 147/46
[2018-03-12] MEDS ORDERED: VITAMIN D-32000 UNIT PO (10:51)
[2018-03-12] MEDS ORDERED: Humalog SQ ×2 (11:01→11:06)
== END 2018-03-12 13:30 | disposition home or self-care (01) | DRG 682 ==
LOC: ED 13:18 → 5E 15:26 → EDHOLD 15:26 → 5E 15:47
PROVIDERS: Internal Medicine; Nurse Practitioner Family; Registered Nurse
DX: N17.0 Acute kidney failure with tubular necrosis (principal); E11.00 Type 2 diabetes mellitus with hyperosmolarity without nonketotic hyperglycemic-hyperosmolar coma (NKHHC); E43 Unspecified severe protein-calorie malnutrition; K86.1 Other chronic pancreatitis; E87.2 Acidosis; Z68.1 Body mass index [BMI] 19.9 or less, adult; I16.0 Hypertensive urgency; Z79.4 Long term (current) use of insulin; I25.10 Atherosclerotic heart disease of native coronary artery without angina pectoris; D64.9 Anemia, unspecified; R74.0 Nonspecific elevation of levels of transaminase and lactic acid dehydrogenase [LDH]; N18.3 Chronic kidney disease, stage 3 (moderate); E86.0 Dehydration; I12.9 Hypertensive chronic kidney disease with stage 1 through stage 4 chronic kidney disease, or unspecified chronic kidney disease; I25.2 Old myocardial infarction; E78.00 Pure hypercholesterolemia, unspecified; E11.22 Type 2 diabetes mellitus with diabetic chronic kidney disease; E55.9 Vitamin D deficiency, unspecified; E78.5 Hyperlipidemia, unspecified; Z83.3 Family history of diabetes mellitus

== ENCOUNTER 2019-02-10 12:40 | Emergency (ER) | payer OTHER ==
[~2019-02-10] VITALS: Ht 175.2 cm; Wt 68.0 kg
[~2019-02-10 12:40] MED LIST changes: +COZAAR100 MG PO; +Humalog SQ; +SODIUM BICARBO650 MG PO; +VITAMIN D-32000 UNIT PO
[2019-02-10] MEDS ORDERED: ULTRAM50 MG PO (14:57)
== END 2019-02-10 15:05 | disposition home or self-care (01) ==
LOC: ED 12:40
DX: S86.911A Strain of unspecified muscle(s) and tendon(s) at lower leg level, right leg, initial encounter (principal); Z79.899 Other long term (current) drug therapy; Z79.82 Long term (current) use of aspirin; Z90.49 Acquired absence of other specified parts of digestive tract; Z87.891 Personal history of nicotine dependence; X50.1XXA Overexertion from prolonged static or awkward postures, initial encounter; Y93.89 Activity, other specified; Y92.89 Other specified places as the place of occurrence of the external cause; Y99.8 Other external cause status

== ENCOUNTER 2019-03-28 09:47 | Inpatient (IN) | payer OTHER ==
[~2019-03-28] VITALS: Ht 175.2 cm; Wt 69.2 kg
[2019-03-28 09:47] VITALS: BP 164/84
[~2019-03-28 09:47] MED LIST changes: +ULTRAM50 MG PO
[2019-03-28 11:39] LABS: BASO % 0.2 % (0.0-1.0); EOS % 0.2 % (1.0-4.0); HEMATOCRIT 27.7 % (42.0-52.0); HEMOGLOBIN 8.9 g/dl (14.0-18.0); LYMPH # 0.5 10*3/uL (1.3-4.4); LYMPH % 7.5 % (27.0-41.0); MEAN CELL VOLUME 102.6 fl (80.0-94.0); MEAN CORPUSCULAR HGB CONC 32.1 g/dl (33.0-37.0); MEAN PLATELET VOLUME 9.9 fl (9.6-12.3); MONO # 0.6 10*3/uL (0.1-1.0); MONO % 9.2 % (3.0-9.0); NEUT # 5.4 10*3/uL (2.3-7.9); NEUT % 82.3 % (47.0-73.0); PLATELET COUNT AUTOMATED 138 10*3/uL (130-400); RED CELL DISTRI WIDTH 15.1 % (0-14.5); WHITE BLOOD COUNT 6.5 10*3/uL (4.8-10.8)
--- NOTE | 2019-03-28 11:45 | NUR ---
FULL BED CHANGE INCONTINENT OF STOOL.
[2019-03-28 11:54] LABS: ALBUMIN 1.2 gm/dl (3.1-4.5); CREATININE 3.33 mg/dL (0.70-1.30); POTASSIUM 2.7 mmol/L (3.5-5.1)
--- NOTE | 2019-03-28 11:58 | NUR ---
CRITICAL CALCIUM 6.7, DR HERRERA MADE AWARE. THIS IS A DIALYSIS PT.
--- NOTE | 2019-03-28 12:49 | NUR ---
FULL BED CHANGE INCONTINENT OF STOOL.
[2019-03-28 13:00] VITALS: BP 156/80
--- NOTE | 2019-03-28 13:03 | NUR ---
ROOM ASSIGNED. MAG SULFATE HAS NOT ARRIVED FROM PHARMACY, WILL PROVIDE THIS INFO IN REPORT.
--- NOTE | 2019-03-28 13:10 | NUR ---
\A 63, admitted to , under the services of FELIPE Du DO with a diagnosis of HYPOKALEMIA, UNABLE TO AMBULATE. Chief complaint is WEAKNESS, FALL. Patient arrived via ambulance from ER. Monitor applied. Initial assessment completed. Vital signs taken and recorded. FELIPE DU DO notified of admission to the unit. Orders received. See assessment for past medical history, medications and allergies. Patient and/or family oriented to unit. [facility] visitation policy reviewed. Clothing/patient valuable form completed. ELIZABETH GONZALES
[2019-03-28 13:39] VITALS: BP 139/74
--- NOTE | 2019-03-28 14:09 | NUR ---
PHYSICAL THERAPY Pt returned from pelvic XR and having a lot of pain per Nursing. Nursing would like to hold on therapy until results of pelvic XR have returned; therapy agreeable. Will attempt at later time when Pt is medically appropriate. Thank you Mira Neil, PT, DPT
--- NOTE | 2019-03-28 15:11 | NUR ---
CONSULT FOR CALLED. AWAITING CALL BACK. MESSAGE LEFT WITH ANSWERING SERVICE.
--- NOTE | 2019-03-28 15:13 | NUR ---
NOTIFIED MIKE AT [facility] FOR DIALYSIS NEED TOMORROW. SAID SHE WOULD SEND A MSG TO THE [employer]RE [employer] IMPREG[employer]ING RANGE TENDER NURSE.
--- NOTE | 2019-03-28 15:14 | NUR ---
NOTIFIED OF SACRAL WOUND. SAID HE WOULD PUT ORDERS IN.
--- NOTE | 2019-03-28 15:21 | NUR ---
PARADI OPERATOR NURSE WITH [facility] CALLED BACK. UPDATED WITH PT STATUS. SAID SHE WOULD BE IN [place] FOR DIALYSIS.
[2019-03-28 16:00] VITALS: BP 117/62
[2019-03-28] MEDS ORDERED: (NONE)4 GM PO (18:32)
[2019-03-28] MEDS ORDERED: LIPITOR40 MG PO (18:32)
[2019-03-28] MEDS ORDERED: DILTIAZEM ER120 MG PO (18:33)
[2019-03-28] MEDS ORDERED: NORCO 5-325 TA1 EACH PO (18:34)
[2019-03-28] MEDS ORDERED: TUMS200 MG PO (18:35)
[2019-03-28] MEDS ORDERED: ACETAMINOPHEN325 M2 PO (18:36)
[2019-03-28] MEDS ORDERED: IMODIUM A-D2 M2 PO (18:37)
[2019-03-28] MEDS ORDERED: Oscal,Oyster S500 MG PO (18:39)
[2019-03-28] MEDS ORDERED: VITAMIN D5000 UNI1 PO (18:40)
--- NOTE | 2019-03-28 18:41 | NUR ---
MED REC UPDATED VIA HOME LIST. NOTIFIED.
[2019-03-28 20:00] VITALS: BP 120/64
[2019-03-29] VITALS: BP 122/61
--- NOTE | 2019-03-29 02:24 | NUR ---
24 HR chart check completed.
--- NOTE | 2019-03-29 05:20 | NUR ---
PT. UP TO BATHROOM WITH 2 ASSIST AND BACK TO BED. BEDSIDE GLUCOSE CHECKED AND IT WAS 40 PT. WAS ALERT AND ORIENTED GAVE PT. OJ X2, MILK AND ASHLEIGH CRACKERS WITH PEANUT BUTTER TO EAT. PT. SAID HE WAS FEELING SHAKEY/WEAK.
--- NOTE | 2019-03-29 06:00 | NUR ---
RECHECKED BEDSIDE GLUCOSE AND IT WAS [address] KAISER OF ALL THIS AND NO ORDERS RECEIVED.
[2019-03-29 06:56] LABS: BASO % 0.2 % (0.0-1.0); EOS # 0.1 10*3/uL (0.0-0.4); EOS % 1.2 % (1.0-4.0); HEMATOCRIT 27.9 % (42.0-52.0); LYMPH # 0.5 10*3/uL (1.3-4.4); LYMPH % 7.9 % (27.0-41.0); MEAN CELL VOLUME 101.5 fl (80.0-94.0); MEAN CORPUSCULAR HGB 32.7 pg (27.0-31.0); MEAN CORPUSCULAR HGB CONC 32.3 g/dl (33.0-37.0); MEAN PLATELET VOLUME 9.7 fl (9.6-12.3); MONO # 0.6 10*3/uL (0.1-1.0); NEUT # 5.3 10*3/uL (2.3-7.9); NEUT % 81.2 % (47.0-73.0); PLATELET COUNT AUTOMATED 164 10*3/uL (130-400); RED BLOOD COUNT 2.75 10*6/uL (4.50-5.90); RED CELL DISTRI WIDTH 15.2 % (0-14.5); WHITE BLOOD COUNT 6.6 10*3/uL (4.8-10.8)
[2019-03-29 07:01] LABS: ALBUMIN 1.2 gm/dl (3.1-4.5); CREATININE 3.98 mg/dL (0.70-1.30); FREE T4 1.02 ng/dl (0.76-1.46); TOTAL PROTEIN 4.2 gm/dL (6.4-8.2)
[2019-03-29 07:06] LABS: THYROID STIM HORMONE (HS) 3.1 uIU/ml (0.358-4.75)
[2019-03-29 07:07] LABS: POTASSIUM 3.7 mmol/L (3.5-5.1)
--- NOTE | 2019-03-29 07:30 | NUR ---
NOTIFIED OF CALCIUM OF 6.1
--- NOTE | 2019-03-29 07:50 | NUR ---
DIALYSIS CALLED FOR PT. PT INFORMED. REFUSED TO GO UNTIL HE ATE. CALLED DIALYSIS NURSE, SHE SAID IT WAS OK TO SEND TRAY TO DIALYSIS ROOM. TRAY ORDERED TO GO TO DIALYSIS ROOM. PT STILL UPSET AND STATES HE WILL "RIP HIS CATH OUT" OF THE FOOD ISN'T THERE WITHIN 40MINS OF HIS ARRIVAL.
--- NOTE | 2019-03-29 08:01 | NUR ---
PT OFF FLOOR FOR DIALYSIS.
[2019-03-29 08:17] LABS: VITAMIN D, 25-HYDROXY 13.6 ng/mL (30-100)
[2019-03-29 12:00] VITALS: BP 127/69
[2019-03-29 16:00] VITALS: BP 141/68
[2019-03-29 20:00] VITALS: BP 121/62; BP 125/60
[2019-03-30] VITALS: BP 125/60
--- NOTE | 2019-03-30 01:18 | NUR ---
PATIENT HAD CALLED OUT FOR HIS SLEEP MEDICATION AND HAD TO CALLED TWICE AND HAVE NURSING SWEET GOODS MACHINE OPERATOR OBTAIN MEDICATION BECAUSE UNABLE TO FIND PO TABLET FROM PHARMACY. PT. WAS UPSET THAT ALL THIS HAPPEND AND WAS BECOMINIG AGGITATED BECAUSE OF HOW LONG IT TOOK. EXPLAINED TO PATIENT AND HE DID APOLOGIZE.
--- NOTE | 2019-03-30 02:00 | NUR ---
ATARAX EFFECTIVE PT SLEEPING.
--- NOTE | 2019-03-30 04:54 | NUR ---
DULCOLAX GIVEN PER ORDER FOR CONSTIPATION. PT. HAD BEEN UP TO BATHROOM AND COULD NOT HAVE A STOOL AND WANTED SOMETHING TO HELP HIM GO.
[2019-03-30 06:54] LABS: ALBUMIN 1.2 gm/dl (3.1-4.5); POTASSIUM 4.5 mmol/L (3.5-5.1)
[2019-03-30 06:57] LABS: CREATININE 3.21 mg/dL (0.70-1.30); TOTAL PROTEIN 4.4 gm/dL (6.4-8.2)
--- NOTE | 2019-03-30 06:59 | NUR ---
CALLED DR. CHOWDHURY AND NOTIFIED HER OF CRITICAL CALCIUM. NO NEW ORDERS RECEIVED.
--- NOTE | 2019-03-30 08:20 | NUR ---
CALLED CALCIUM OF 5.9 TO . ORDERED TO NOTIFY NEPHRO. MESSAGE LEFT FOR . AWAITING CALL BACK.
--- NOTE | 2019-03-30 08:24 | NUR ---
CALLED BACK. NEW ORDER FOR BMP REPEAT AND TO CALL BACK IF CALCIUM IS <5.6. SEE LAB ORDERS.
[2019-03-30 09:32] VITALS: BP 142/88
[2019-03-30 09:38] LABS: CREATININE 3.39 mg/dL (0.70-1.30); POTASSIUM 4.7 mmol/L (3.5-5.1)
--- NOTE | 2019-03-30 09:48 | NUR ---
/CHARIS NOTIFIED OF CALCIUM 6.3. NO NEW ORDERS REC'D.
--- NOTE | 2019-03-30 11:00 | NUR ---
PHYSICAL THERAPY PT EVAL COMPLETED; FULL EVAL TO FOLLOW; RECOMMEND PT WHILE HERE TO ADDRESS DEFICITS. PT EVAL IS MODERATE COMPLEXITY: [id number]. D/C RECOMMENDATIONS ARE SHORT TERM SNF ON D/C DUE TO RECENT DECLINE AND FALLS AND NEW DIALYSIS. THANK YOU FOR REFERRAL [facility] PT
--- NOTE | 2019-03-30 11:49 | NUR ---
SLEEPING. NO SXS OF DISTRESS NOTED. BED ALARM ON. CALL LIGHT WITHIN REACH.
[2019-03-30 12:00] VITALS: BP 111/49
[2019-03-30 16:00] VITALS: BP 98/50
--- NOTE | 2019-03-30 18:46 | NUR ---
LAYING LEFT HIP. STATES HIS PAIN TO RT HIP IS "EXCRUTIATING". STATES HIS PAIN MEDS NEED INCREASED. NORCO GIVEN PER REQUEST ORDERS. REQUESTING DOCTORS ARE CALLED FOR STRONGER PAIN MEDS. STATES PAIN IS ONLY THIS STRONG WHEN HE GETS OOB AND USES HIS LEGS/HIPS FOR AMBULATION.
--- NOTE | 2019-03-30 18:52 | NUR ---
NOTIFIED OF PT REQUEST FOR STRONGER PAIN MEDS. SAID TO SEE HOW THE NORCO DOES. IF THERE ARE STILL COMPLAINTS OF PAIN, TO OFFER THE PT A KPAD.
[2019-03-30 20:00] VITALS: BP 101/48
--- NOTE | 2019-03-30 20:39 | NUR ---
RESTIN GIN BED WATCHING TV. HEP LOCK INTACT. PERITONEAL CATH INTACT L ABD. DRSG INTACT TO SITE. NO DISTRESS NOTED. NO C/O'S VOICED.
--- NOTE | 2019-03-30 21:37 | NUR ---
BENADRYL PO FOR SLEEP. WILL MONITOR. RESTING IN BED EATING SNACKS.
--- NOTE | 2019-03-30 22:38 | NUR ---
GINA FOR C/O'S COCCYX PAIN. WILL MONITOR.
--- NOTE | 2019-03-30 23:14 | NUR ---
EARLIER MEDS EFFECTIVE. RESTING IN BED WITH EYES CLOSED. APPEARS TO BE SLEEPING.
[2019-03-31] VITALS: BP 100/52
[2019-03-31 02:08] LABS: BILIRUBIN NEGATIVE (NEGATIVE); BLOOD TRACE-INTACT (NEGATIVE); CLARITY CLEAR (CLEAR); COLOR YELLOW (YELLOW); GLUCOSE 2+ (NEGATIVE); KETONE NEGATIVE (NEGATIVE); LEUKO ESTERASE NEGATIVE (NEGATIVE); NITRITE NEGATIVE (NEGATIVE); PH 5.5 (5.0-9.0); SPECIFIC GRAVITY >= 1.030 (1.005-1.030); UROBILINOGEN 0.2 E.U./dl (0.2-1.0)
[2019-03-31 02:16] LABS: BACTERIA 2+; EPITHELIAL CELLS 0-2; FINE GRANULAR CAST 0-2; HYALINE CAST 0-2; RBC 0-2 rbc/hpf (0-2)
--- NOTE | 2019-03-31 04:30 | NUR ---
REMAINS SLEEPING WITHOUT DISTRESS.
--- NOTE | 2019-03-31 05:44 | NUR ---
0530 NORCO 1 PO GIVEN FOR C/O'S COCCYX PAIN. WILL MONITOR.
--- NOTE | 2019-03-31 06:20 | NUR ---
EARLIER PAIN MED EFFECTIVE. NO DISTRESS NOTED. CONDITION GUARDED.
[2019-03-31 06:43] LABS: BASO % 0.2 % (0.0-1.0); EOS # 0.1 10*3/uL (0.0-0.4); EOS % 1.1 % (1.0-4.0); HEMOGLOBIN 7.6 g/dl (14.0-18.0); LYMPH # 0.5 10*3/uL (1.3-4.4); MEAN CELL VOLUME 103.9 fl (80.0-94.0); MEAN CORPUSCULAR HGB 32.9 pg (27.0-31.0); MEAN CORPUSCULAR HGB CONC 31.7 g/dl (33.0-37.0); MEAN PLATELET VOLUME 9.9 fl (9.6-12.3); MONO # 0.4 10*3/uL (0.1-1.0); MONO % 6.7 % (3.0-9.0); NEUT # 4.4 10*3/uL (2.3-7.9); NEUT % 81.6 % (47.0-73.0); PLATELET COUNT AUTOMATED 119 10*3/uL (130-400); RED BLOOD COUNT 2.31 10*6/uL (4.50-5.90); RED CELL DISTRI WIDTH 15.5 % (0-14.5); WHITE BLOOD COUNT 5.4 10*3/uL (4.8-10.8)
[2019-03-31 06:54] LABS: ALBUMIN 1.2 gm/dl (3.1-4.5); CREATININE 4.1 mg/dL (0.70-1.30); PHOSPHOROUS 2.7 mg/dL (2.5-4.9); POTASSIUM 4.4 mmol/L (3.5-5.1); TOTAL PROTEIN 4.2 gm/dL (6.4-8.2)
[2019-03-31 08:00] VITALS: BP 150/85
--- NOTE | 2019-03-31 08:00 | NUR ---
PHYSICAL THERAPY Patient seen this am 1;1 for therapy visit and was in the bathroom following patient care upon therapist arrival. Patient identified by name / and reports mild B hip pain 3/10. Patient ambulates 15'x 1, CGA, use of wh walker, to EOB sit and was tested for B hamstring tightness. Patient instructed on seated B hamstring prolonged stretch and completed 10 each with 5 second hold. Patient transfers sit to stand CGA, ambulating 50'x 1, wh walker, CGA, demonstrating slow, steady татьяна and no LOB. Patient returned to EOB sit reporting decreased B hamsting tightness and no c/o's hip pain. Patient remained EOB sit with call light, tray table and telephone awaiting breakfast. Will continue per POC as tolerated, total treatment time 17 minutes. Gomez Jay, LEATHER GOODS SALES REPRESENTATIVE
--- NOTE | 2019-03-31 08:12 | NUR ---
Occupational therapy orders and nursing screen received. Will follow up with patient for completion of OT evaluation. Thank you. Maren Floyd, OTR/L
--- NOTE | 2019-03-31 08:19 | NUR ---
FLORIDALMAROXANA Stoner [id number] Please refer to the physician's history and physical for past medical history, comorbid conditions, and allergies. Diagnosis: RENAL FAILURE UNABLE TO AMBULATE HYPOKALEMIA Keron Score: 14,MODERATE RISK WOUND DESCRIPTIONS: Wound Number: 1 Location of the wound: SACRUM Type of wound: STAGE 2 Thickness: Partial Size: 1cm X 1.4cm X 0.1cm Tunneling: NONE Undermining: NONE Sinus Tract: NONE Presence of Exudate: Serous sanguineous Amount: Light Color: Red, Mulberry Odor: None Periwound Skin Appearance: Erythema Wound edges: APPROXIMATED Pain (associated with wound): TENDER TO TOUCH How does patient state this happened? PATIENT STATES THIS AREA WAS OPEN WHEN HE WAS ADMITTED TO THE HOSPITAL. PATIENT STATES THAT HE HAS HAD AREAS LIKE THIS BEFORE IN THIS SAME AREA THAT HAVE HEALED "QUICKLY." Surface the patient is resting on: Position Pro SKIN PREVENTION RECOMMENDATION: 1. Pressure redistribution support surface as appropriate 2. Elevate heels 3. Remove boots/TEDS every shift and reapply 4. Head of bed 30 degrees as tolerated 5. Assess nutrition and hydration 6. Manage moisture 7. Avoid the use of containment devices while in bed 8. Use absorptive products on surfaces limit layers of linens on bed 9. Turn and reposition every 1-2 hours in bed and every 1 hour in chair as tolerated 10. Weight shifts every 15 minutes while up in chair 11. Offloading with pillows or device to keep heels elevated off bed 12. Monitor skin at least every shift 13. Inspect under medical devices twice a day WOUND TREATMENT RECOMMENDATIONS: CONTINUE CURRENT ORDERS. PATIENT STATES THAT HE WILL CARE FOR HIS WOUND AT HOME WHEN DISCHARGED.
--- NOTE | 2019-03-31 08:21 | NUR ---
PHYSICAL THERAPY Screen received and patient has already been evaluated, please refer to note for full details, thank you. Chel Quintero PT
--- NOTE | 2019-03-31 09:00 | NUR ---
Attendant [facility] in to talk to patient. Patient states lives at home with girlfriend. There are few steps in the home. Physician: bobo fernandez Pharmacy: [facility] Patient's level of ADLs: MODERATE ASSIST Patient has working utilities: all working DME: albin santiago Follow-up physician's appointment after d/c: will be made by hospitalist nurse director upon discharge Does patient want to access PORTAL?: no Discharge plan discussed with nicole, girlfriend present, he lives at home with his girlfriend, she is his caregiver, he states he recently was discharged from [facility] facility for skilled rehab, went home and [facility] is currently visiting patient, discussed with them patient not being able to function at home and returning to a short term skilled, they were inagreement with this and stated the only facility that accepts patient's insurance is [facility], planner intern will make referral and other facilities that may accept patient's insurance. EMERSON FLEMING
--- NOTE | 2019-03-31 10:11 | NUR ---
PT MEDICATED WITH NORCO AT HIS REQUEST FOR C/O PAIN TO COCCYX. PT REMINDED TO CHANGE POSITIONS FREQUENTLY TO TAKE PRESSURE OFF THAT AREA.
--- NOTE | 2019-03-31 11:05 | NUR ---
Occupational therapy orders received and chart reviewed. Patient refusing OT evaluation at this time stating "I'd rather not do it while I have guests." Will follow up with patient at 13:30 for completion of OT evaluation, per patient request. Thank you. Maren Floyd, OTR/L
--- NOTE | 2019-03-31 11:11 | NUR ---
PT STATED NORCO WAS EFFECTIVE IN EASING HIS PAIN.
[2019-03-31 12:00] VITALS: BP 158/81
--- NOTE | 2019-03-31 12:13 | NUR ---
Patient resides in [place]; patient and girl friend requesting a referral to [facility]. Contacted facility who stated they are out of network with patients [facility] insurance; [facility] must stay within the [facility]. Patient stated he was previously at [facility] which is now known as [facility] and rehab. Contacted Rahel and faxed referral. She stated she is going to check patients remaining snf days and review referral. Waiting on acceptance.
--- NOTE | 2019-03-31 13:16 | NUR ---
Occupational therapy orders received and OT evaluation completed in full on floor four. Patient precautions include fall risk, ww use, bed alarm, right hip pain, and generalized weakness. Per OT eval, OT recommends SNF. If refused, home with SN, OT, and PT. Patient adamantly wanting to return home. Patient complexity is [place], [id number]. Thank you for the referral. Maren Floyd, OTR/L
--- NOTE | 2019-03-31 13:30 | NUR ---
PHYSICAL THERAPY Patient seen this pm 1:1 for therapy visit and was sitting up on EOB helena martin upon therapist arrival. Patient identified by name / and voices no pain at rest, however reports increased B hip pain during prolonged standing activities. Patient transfers sit to stand from low bed surface, MOD A and ambulates with use of wh walker, CGA, 50'x 1, demonstrating slow татьяна, decreased stride and increased fatigue. Patient needed v/c for increased stride and brief standing rest break < 20 seconds upon return to EOB sit. Patient remained EOB with call light, tray table and telephone. Will continue per POC as tolerated, total treatment time 14 minutes. Gomez Jay, CAMPAIGN ANALYST
--- NOTE | 2019-03-31 15:50 | NUR ---
PT MEDICATED WITH IMMODIUM FOR C/O 3 LOOSE STOOLS TODAY AND NORCO FOR PAIN TO COCCYX WOUND AND HIP AREAS.
[2019-03-31 16:00] VITALS: BP 113/64
[2019-03-31 20:00] VITALS: BP 131/68
--- NOTE | 2019-03-31 21:19 | NUR ---
BENADRYL GIVEN PER PATIENT REQUEST FOR INSOMNIA. IMMODIUM GIVEN PER PATIENT REQUEST FOR LOOSE STOOLS. WILL ASSESS EFFECTIVENESS.
--- NOTE | 2019-03-31 22:20 | NUR ---
PRN MEDICATIONS EFFECTIVE PER PATIENT. PATIENT RESTING QUIETLY IN BED. RESPIRATIONS ARE EASY, REGULAR, NON-LABORED. NO FURTHER COMPLAINTS AT THIS TIME. CALL LIGHT WITHIN REACH. WILL CONTINUE TO MONITOR.
[2019-04-01] VITALS: BP 129/77
--- NOTE | 2019-04-01 00:36 | NUR ---
24 HR chart check completed.
--- NOTE | 2019-04-01 05:01 | NUR ---
Patient resting quietly with no c/o discomfort. Respirations easy and regular. Vital signs stable. No overt distress. SHARON NATH
--- NOTE | 2019-04-01 05:44 | NUR ---
NORCO GIVEN PER PATIENT REQUEST FOR PAIN IN COCCYX AREA RATED 6/10. WILL ASSESS EFFECTIVENESS.
[2019-04-01 06:53] LABS: BASO % 0.2 % (0.0-1.0); EOS % 0.7 % (1.0-4.0); HEMATOCRIT 25.7 % (42.0-52.0); LYMPH # 0.5 10*3/uL (1.3-4.4); LYMPH % 8.1 % (27.0-41.0); MEAN CELL VOLUME 105.8 fl (80.0-94.0); MEAN CORPUSCULAR HGB 32.9 pg (27.0-31.0); MEAN CORPUSCULAR HGB CONC 31.1 g/dl (33.0-37.0); MEAN PLATELET VOLUME 9.9 fl (9.6-12.3); MONO # 0.4 10*3/uL (0.1-1.0); MONO % 7.7 % (3.0-9.0); NEUT # 4.6 10*3/uL (2.3-7.9); NEUT % 82.9 % (47.0-73.0); PLATELET COUNT AUTOMATED 133 10*3/uL (130-400); RED BLOOD COUNT 2.43 10*6/uL (4.50-5.90); RED CELL DISTRI WIDTH 15.7 % (0-14.5); WHITE BLOOD COUNT 5.6 10*3/uL (4.8-10.8)
[2019-04-01 07:17] LABS: CREATININE 4.33 mg/dL (0.70-1.30); PHOSPHOROUS 2.8 mg/dL (2.5-4.9); POTASSIUM 4.9 mmol/L (3.5-5.1)
[2019-04-01 08:00] VITALS: BP 157/88
--- NOTE | 2019-04-01 09:10 | NUR ---
OT NOTE Pt was seen this A.M. 1:1 for 15 minute OT session. Upon arrival pt was sitting upright on the standard commode. Pt identified by name and and had no complaints at this time. Sit to stand completed from commode level with Dario and use of w/w for UE support. Toilet hygiene completed with modA and clothing management completed with Dario. Pt then stood sink side while washing his hands with CGA for safety. Functional mobility was then completed back to the EOB where he transferred sit to supine with SBA. There he was left with call light in hand, tray table in place, and bed alarm activated for safety. Continue with rec D/C plan to SNF. OLVIN Mckeon/Lilia
--- NOTE | 2019-04-01 11:13 | NUR ---
Unfortunately patient is out of network with all facilities in [place]. With patients [facility] for life insurance, he must stay within the state of [place] for snf placement. Patient referred to [facility] and rehab. Patient understands. waiting on auth.
--- NOTE | 2019-04-01 11:18 | NUR ---
PHYSICAL THERAPY Patient seen this am 1:1 for therapy visit and was in the bathroom upon therapist arrival. Patient identified upon exiting bathroom by name/ and reports no new c/o's other than chronic B hip pain as previously reported. Patient ambulates with use of wh walker,50'x 2, CGA, demonstrating very slow, cautious gait pattern, decreased stride and needed a seated rest break between gait trials secondary to increased fatigue / feeling a little "sluggish". Patient returned to supine in bed and remained with call light, tray table, telephone and bed alarm for safety. Will continue per POC as tolerated, total treatment time 17 minutes. Gomez Jay, REGISTERED NURSE CARDIAC
[2019-04-01 12:00] VITALS: BP 148/86
--- NOTE | 2019-04-01 12:08 | NUR ---
Contacted Graciela at [facility] and rehab. She stated the patient currently owe's $700.00 and is now into his copay days of $100.00 per day. They stated patient must be able to pay the $700.00 owed up front prior to them accepting this patient.
--- NOTE | 2019-04-01 13:28 | NUR ---
Spoke with patient girlfriend in detail regarding the balance owed at [facility] and that patient is now into his copay days at $100 per day. She is stating she doesn't know what to do with him but they can't pay the balance or the copay at this time. I told her a decision would need to be made today as patient is medically stable for discharge. She is on her way into the hospital to speak with the patient. will follow
--- NOTE | 2019-04-01 13:53 | NUR ---
NET MENDER RAMÍREZ CALLED AND QUESTIONED IF PATIENT WILL BE HAVING DIALYSIS TODAY. THEY WILL CALL THE RN AND RETURN THE PHONE CALL
--- NOTE | 2019-04-01 15:00 | NUR ---
TAKEN TO 5E VIA BED FOR DIALYSIS.
--- NOTE | 2019-04-01 15:46 | NUR ---
OCCUPATIONAL THERAPY CO-SIGN I approve of the Occupational Therapy notes written above. TIMI LANDRY OTR/Lilia
--- NOTE | 2019-04-01 16:05 | NUR ---
PT IN DIALYSIS
--- NOTE | 2019-04-01 19:55 | NUR ---
PATIENT RESTING IN BED WATCHING TV. DENIES NEEDS AT THIS TIME. BED INL OWEST POSITION, CALL LIGHT IN REACH
[2019-04-01 20:00] VITALS: BP 117/63
--- NOTE | 2019-04-01 20:31 | NUR ---
MEDICATED WITH PRN NORCO FOR C/O PAIN IN COCCYX RATED 9/10 ON A 0/10 PAIN SCALE. WILL MONITOR
--- NOTE | 2019-04-01 21:17 | NUR ---
MEDICATED WITH PRN BENEDRYL FOR SLEEPLESSNESS
--- NOTE | 2019-04-01 21:18 | NUR ---
PATIENT REFUSING BED ALARM. EDUCATED ON IMPORTANCE OF IT FOR SAFETY, CONTINUES TO REFUSE
[2019-04-02] VITALS: BP 118/62
--- NOTE | 2019-04-02 00:49 | NUR ---
DR SULTANA AWARE OF PATIENT'S LEFT ARM FISTULA LEAKING A CLEAR FLUID. STATES TO PUT GAUZE AND FARHANA WRAP ON IT AND HE WILL SEE IT
--- NOTE | 2019-04-02 01:05 | NUR ---
DR SULTANA AND DR LAZARO AT BEDSIDE
--- NOTE | 2019-04-02 02:34 | NUR ---
MEDICATED WITH PRN VISTARIL FOR C/O OF SLEEPLESSNESS
--- NOTE | 2019-04-02 03:39 | NUR ---
24 HR chart check completed.
[2019-04-02 06:48] LABS: HEMATOCRIT 22.5 % (42.0-52.0); MEAN CELL VOLUME 108.7 fl (80.0-94.0); MEAN CORPUSCULAR HGB 33.8 pg (27.0-31.0); MEAN CORPUSCULAR HGB CONC 31.1 g/dl (33.0-37.0); MEAN PLATELET VOLUME 10.2 fl (9.6-12.3); RED BLOOD COUNT 2.07 10*6/uL (4.50-5.90); WHITE BLOOD COUNT 5.1 10*3/uL (4.8-10.8)
[2019-04-02 07:08] LABS: PLATELET COUNT AUTOMATED 66 10*3/uL (130-400)
[2019-04-02 07:13] LABS: ALBUMIN 1.1 gm/dl (3.1-4.5); POTASSIUM 5.4 mmol/L (3.5-5.1)
[2019-04-02 07:17] LABS: CREATININE 3.59 mg/dL (0.70-1.30); PHOSPHOROUS 2.3 mg/dL (2.5-4.9); TOTAL PROTEIN 4.1 gm/dL (6.4-8.2)
--- NOTE | 2019-04-02 07:32 | NUR ---
DR ROJO NOTIFIED OF CA 6.5 NO NEW ORDERS
[2019-04-02 07:42] LABS: BASOPHILS 1 % (0-1); PLATELET SUFFICIENCY LOW (NORMAL); TOTAL CELLS COUNTED 100 #CELLS
[2019-04-02 07:43] LABS: POLYCHROMASIA SLIGHT; SCHISTOCYTES FEW
[2019-04-02 08:00] VITALS: BP 140/80
--- NOTE | 2019-04-02 09:17 | NUR ---
PHYSICIAN WAS NOTIFIED OF DR. MUNOZ CONSULT. RESPONSE OF NOTIFICATION WAS OK I WILL SEE HIM . ESE SIMON
--- NOTE | 2019-04-02 09:25 | NUR ---
C/O PAIN TO SACRUM OF 12/21. NORCO GIVEN AT THIS TIME. WILL CONT TO MONITOR.
--- NOTE | 2019-04-02 10:25 | NUR ---
GINA EFF. PT STATES HE'S OK RIGHT NOW. WILL CONT TO MONITOR. CALL LIGHT IN REACH.
--- NOTE | 2019-04-02 11:00 | NUR ---
PHYSICAL THERAPY Patient seen this am 1;1 for therapy visit and was resting supine in bed upon therapist arrival. Patient identified by name / and reports 8/10 Sacral pain secondary to wound. Patient instructed on pressure relief bed positioning / rolling technique and was able to improve bed mobility, including supine to sit EOB transfer with MIN A x 1. Patient performed sit to stand transfer, CGA, while ambulating with use of wh walker, 50'x 2, CGA, demonstrating slow татьяна, decreased stride and increased fatigue. Patient reported no change in pain c/o and returned to supine in bed with MIN A for comfortable positioning. Patient remained in bed with call light, tray table and telephone. Will continue per POC as tolerated, total treatment time 17 minutes. Gomez Jay, INTERLOCKING PAVEMENT INSTALLER
--- NOTE | 2019-04-02 11:20 | NUR ---
OT NOTE Pt was seen this A.M. 1:1 for 15 minute OT session. Upon arrival pt was supine in bed with no bed alarm activated. Pt identified by name and and had complaints of 8/10 pain at his tail bone. Pt transferred supine to sit EOB with CGA and use of bed rail for UR support. Sit to stand completed from bed level with CGA and use of w/w for UE support. Challenged pt's dynamic standing tolerance needed for increased I and enhanced safety in self care tasks. While weight shifting, crossing midline, and reaching over all planes pt was able to maintain F-/F standing balance. Pt had two LOB that occured both while reaching midline that required Dario to correct and also pt required education on safe reaching out of base of support, pt had poor carry over. Pt then completed functional mobility to the bathroom and back with CGA and use of w/w. Pt returned to the EOB where he transferred sit to supine with SBA. There he was left with call light in hand, tray table in place, and phone in reach. Continue with rec D/C plan to SNF. OLVIN Mckeon/Lilia
[2019-04-02 12:00] VITALS: BP 108/68
[2019-04-02 16:00] VITALS: BP 117/61
--- NOTE | 2019-04-02 18:32 | NUR ---
C/O PAIN TO SACRUM OF 02/20. NORCO GIVEN AT THIS TIME. WILL CONT TO MONITOR. CALL LIGHT IN REACH.
[2019-04-02 20:00] VITALS: BP 138/78
[2019-04-03 06:42] LABS: CREATININE 3.9 mg/dL (0.70-1.30)
[2019-04-03 06:44] LABS: POTASSIUM 4.4 mmol/L (3.5-5.1)
[2019-04-03 06:54] LABS: BASO % 0.2 % (0.0-1.0); EOS # 0.1 10*3/uL (0.0-0.4); EOS % 1.2 % (1.0-4.0); HEMATOCRIT 25.5 % (42.0-52.0); HEMOGLOBIN 7.9 g/dl (14.0-18.0); LYMPH # 0.7 10*3/uL (1.3-4.4); MEAN CELL VOLUME 107.6 fl (80.0-94.0); MEAN CORPUSCULAR HGB 33.3 pg (27.0-31.0); MEAN PLATELET VOLUME 9.9 fl (9.6-12.3); MONO # 0.4 10*3/uL (0.1-1.0); NEUT # 4.7 10*3/uL (2.3-7.9); NEUT % 80.4 % (47.0-73.0); RED BLOOD COUNT 2.37 10*6/uL (4.50-5.90); RED CELL DISTRI WIDTH 16.5 % (0-14.5); WHITE BLOOD COUNT 5.8 10*3/uL (4.8-10.8)
[2019-04-03 06:56] LABS: PLATELET COUNT AUTOMATED 96 10*3/uL (130-400)
--- NOTE | 2019-04-03 07:11 | NUR ---
In to discuss DC planning with patient and girlfriend. Patient is currently into his copay days and cannot afford to go to snf. Patient and girlfriend in agreement patient will go home with [facility] when medically stable for discharge.
[2019-04-03 08:00] VITALS: BP 150/82
--- NOTE | 2019-04-03 09:15 | NUR ---
pt sent to dialysis.
--- NOTE | 2019-04-03 10:39 | NUR ---
c/o pain of 12/21. norco given at this time. will cont to monitor. call light in reach.
--- NOTE | 2019-04-03 11:09 | NUR ---
OT NOTE Attempted to see pt this A.M. for OT session and upon arrival pt was outof the room for dialysis. Will check back at a later time/date and continue with POC as able. OLVIN Mckeon/Lilia
[2019-04-03 13:00] VITALS: BP 128/72
--- NOTE | 2019-04-03 13:26 | NUR ---
PHYSICAL THERAPY Patient was in dialysis at 1030 am this morning when this SECURITIES ATTORNEY checked on patient for therapy session. Will check back this afternoon. MARU NAM SECURITIES ATTORNEY
--- NOTE | 2019-04-03 13:55 | NUR ---
PT RETURNED FROM DIALYSIS
--- NOTE | 2019-04-03 14:05 | NUR ---
PHYSICAL THERAPY Patient seen this pm 1:1 for therapy visit and was resting comfortably supine in bed upon therapist arrival. Patient identified by name / and reports feeling generalized, global weakness secondary to am Dialysis treatment. Patient was very pleasant, transfering supine to sit EOB with MIN A. Patient needed a few seconds static sit to collect himself before completing sit to stand transfer, CGA x 1. Patient ambulates with use of wh walker, CGA, 50'x 1, demonstrating very slow татьяна. decreased stride, and increased fatigue upon return to EOB sit. Patient transfered back to bed in short sitting upright position as lunch arrived. Patient remained in bed with call light, tray table, telephone and bed alarm for safety. Will continue per POC as tolerated, total treatment time 14 minutes. Gomez Jya, STONE ROUGHER
--- NOTE | 2019-04-03 14:23 | NUR ---
OT NOTE Pt was seen this P.M. 1:1 for 13 minute OT session. Upon arrival pt was supine in bed. Pt identified by name and and had no complaints at this time. Pt transferred supine to sit EOB witb Dario for assist with UB. Sit to stand completed from bed level with CGA and use of w/w for UE support. Challenged pt's static standing tolerance needed for increased I in self care tasks and functional transfers. Pt was able to tolerate aprox 5 minutes at a time before sitting due to fatigue. pt then completed functional mobility to the bathroom and back with CGA and use of w/w. Pt then transferred back into bed sit to supine with SBA. There he was left with call light in hand, tray table in place, and phone in reach. Continue with rec D/C plan to SNF. OLVIN Mckeon/Lilia
[2019-04-03 16:00] VITALS: BP 148/83
--- NOTE | 2019-04-03 16:31 | NUR ---
BS [address] THEN RECHECK[address] FOR [address]. [address] ROBLERO ANSWERED FOR DR ROJO AND STATED TO GIVE HIM COVERAGE BASED ON SLIDING SCALE.
[2019-04-03 20:00] VITALS: BP 119/57
[2019-04-04] VITALS: BP 130/56
--- NOTE | 2019-04-04 00:53 | NUR ---
1.1CMX1.1CMX0.1CM SKIN TEAR NOTED TO LEFT HAND WELL SCABBED AREAS TO LEFT ARM DR. LAZARO AWARE, SEE NEW ORDERS.
[2019-04-04 06:46] LABS: BASO % 0.5 % (0.0-1.0); EOS # 0.1 10*3/uL (0.0-0.4); EOS % 1.3 % (1.0-4.0); HEMATOCRIT 25.3 % (42.0-52.0); HEMOGLOBIN 7.6 g/dl (14.0-18.0); LYMPH % 16.4 % (27.0-41.0); MEAN CELL VOLUME 107.7 fl (80.0-94.0); MEAN CORPUSCULAR HGB 32.3 pg (27.0-31.0); MEAN PLATELET VOLUME 10.4 fl (9.6-12.3); MONO # 0.6 10*3/uL (0.1-1.0); MONO % 9.8 % (3.0-9.0); NEUT # 4.4 10*3/uL (2.3-7.9); NEUT % 71.7 % (47.0-73.0); PLATELET COUNT AUTOMATED 68 10*3/uL (130-400); RED BLOOD COUNT 2.35 10*6/uL (4.50-5.90); RED CELL DISTRI WIDTH 16.3 % (0-14.5); WHITE BLOOD COUNT 6.2 10*3/uL (4.8-10.8)
[2019-04-04 07:09] LABS: CREATININE 3.12 mg/dL (0.70-1.30); PHOSPHOROUS 2.3 mg/dL (2.5-4.9); POTASSIUM 4.3 mmol/L (3.5-5.1)
[2019-04-04 08:00] VITALS: BP 144/74
--- NOTE | 2019-04-04 08:05 | NUR ---
LAYING IN BED, PLEASANT, COOPERATIVE. ASKE FOR AM MEDS TO BE GIVEN AFTER HIS BREAKFAST. NO COMPLAINTS VOICE. EDEMA TO LEGS IS MUCH IMPROVED. WILL MONITOR. SEE SHIFT ASSESSMENT.
--- NOTE | 2019-04-04 08:15 | NUR ---
PHYSICAL THERAPY Screen received, pt has already been evaluated and is on caseload, thank you Chel Quintero PT
--- NOTE | 2019-04-04 09:01 | NUR ---
FLORIDALMAROXANA Stoner [id number] Please refer to the physician's history and physical for past medical history, comorbid conditions, and allergies. Diagnosis: RENAL FAILURE UNABLE TO AMBULATE HYPOKALEMIA Keron Score: 16,AT RISK WOUND DESCRIPTIONS: Wound Number: 1 (REVISIT) Location of the wound: SACRUM Type of wound: STAGE 2 Thickness: Partial Size: 1cm X 0.6cm X 0.1cm Tunneling: NONE Undermining: NONE Sinus Tract: NONE Presence of Exudate: Serous Amount: Light Color: Red Odor: None Periwound Skin Appearance: Erythema Wound edges: APPROXIMATED Pain (associated with wound): DENIED AT TIME OF ASSESSMENT Wound Number: 2 Location of the wound: LEFT HAND Type of wound: SKIN TEAR Thickness: Partial Size: 0.9cm X 0.8cm X 0.1cm Tunneling: NONE Undermining: NONE Sinus Tract: NONE Presence of Exudate: Serous sanguineous Amount: Light Color: Red Odor: None Periwound Skin Appearance: Erythema Wound edges: APPROXIMATED Pain (associated with wound): DENIED AT TIME OF ASSESSMENT How does patient state this happened? PATIENT STATES THAT HE HIT THIS AREA OFF OF THE BED RAIL. If wound is on legs/feet or hands, capillary refill time, pulses, color temp, sensation: CAP REFILL < 3 SECONDS. Surface the patient is resting on: Position Pro SKIN PREVENTION RECOMMENDATION: 1. Pressure redistribution support surface as appropriate 2. Elevate heels 3. Remove boots/TEDS every shift and reapply 4. Head of bed 30 degrees as tolerated 5. Assess nutrition and hydration 6. Manage moisture 7. Avoid the use of containment devices while in bed 8. Use absorptive products on surfaces limit layers of linens on bed 9. Turn and reposition every 1-2 hours in bed and every 1 hour in chair as tolerated 10. Weight shifts every 15 minutes while up in chair 11. Offloading with pillows or device to keep heels elevated off bed 12. Monitor skin at least every shift 13. Inspect under medical devices twice a day WOUND TREATMENT RECOMMENDATIONS: CONTINUE CURRENT WOUND ORDERS.
--- NOTE | 2019-04-04 09:25 | NUR ---
PHYSICAL THERAPY Patient seen this am 1:1 for therapy visit and was resting supine in bed upon therapist arrival. Patient identified by name / and reports chronic, sharp bouts of sacral pain, 3/10 secondary to prolonged pressure. Patient states he is able to reposition to alleviate some of his pain and transfers supine to sit EOB, then sit to stand CGA x 1. Patient ambulates with use of wh walker, CGA, 75'x 1, demonstrating improved stride, good upright posture and no LOB this session. Patient however, still fatiuges quickly upon return to EOB sit, needing a few minutes seated rest prior to transfer supine in bed. Patient remained in bed with call light, tray table, cell phone and bed alarm for safety. Will continue per POC as tolerated, total treatment time 14 minutes. Gomez Jay, PLASTIC CABLEMAKING MACHINE OPERATOR
--- NOTE | 2019-04-04 10:05 | NUR ---
CALLED TO ROOM FOR PAIN PILL. PRN NORCO GIVEN FOR C/O RT HIP PAIN RATED 7/10. REPOSITIONED FOR COMFORT. CALL LIGHT WITHIN REACH.
--- NOTE | 2019-04-04 11:18 | NUR ---
OT NOTE PATIENT IDENTIFIED BY NAME AND DATE OF . PATIENT COMPLETED 23 MINUTES OT THIS DATE. PATIENT IN BED UPON ARRIVAL THIS DATE. PATIENT IN BED UPON ARRIVAL. COMPLETED SUPINE TO SIT EOB SBA WITH INCREASE TIME DUE TO PAIN RIGHT HIP. PATIENT ABLE TO ADJUST SOCKS SBA SEATED EOB WITH EDUCATION BENEFITS USE SOCK AIDE FOR WORK SIMPLIFICATION. COMPLETED SIT TO STAND FROM BED SBA AND COMPLETED FUNCTIONAL AMBULATION USE FWW TO BATHROOM. COMPLETED TOILET TRANSFER CGA WITH EDUCATION SAFETY USE GRABBAR. PATIENT DEMONSTRATED FAIR/ FAIR + STAND BALANCE THIS DATE USE FWW SUPPORT. COMPLETED SIT TO SUPINE BED CGA. PATIENT IN BED WITH CALL LIGHT WITHIN REACH AND NO FURTHER NEEDS VERBALIZED. CONTINUE TOWARDS PLAN OF CARE. KASHIF BAH/Lilia
--- NOTE | 2019-04-04 11:35 | NUR ---
SOHAN REINOSO IN TO SEE PT AND ASSESS SACRAL WOUND. DISCHARGE PHOTOS TAKEN AT THIS TIME.
--- NOTE | 2019-04-04 11:46 | NUR ---
PHOTOVOLTAIC PANEL INSTALLER attempted to speak with the patient about discharge. Patient stated he is wanting to eat his lunch before it gets cold and asked this PHOTOVOLTAIC PANEL INSTALLER to return after while. PHOTOVOLTAIC PANEL INSTALLER will follow up with the patient at a later time. -SHAMAR Galarza
[2019-04-04 12:00] VITALS: BP 134/64; BP 138/70
--- NOTE | 2019-04-04 14:28 | NUR ---
case management contacted [facility], spoke to Bassam, patient's information given and informed patient would be discharged to home today
--- NOTE | 2019-04-04 15:10 | NUR ---
Nursing screen received and patient is currently being treated by Occupational Therapy. Thank you. Maryanne Zimmerman OTR/l
--- NOTE | 2019-04-04 15:21 | NUR ---
OCCUPATIONAL THERAPY CO-SIGN I approve of the Occupational Therapy notes written above. TIMI LANDRY OTR/Lilia
--- NOTE | 2019-04-04 15:21 | NUR ---
PHYSICAL THERAPY CO-SIGN I approve of the Physical Therapy notes written above. Chel Quintero PT
[2019-04-04] MEDS ORDERED: NORCO 5-325 TA1 EACH PO (16:07)
--- NOTE | 2019-04-04 16:29 | NUR ---
Discharge instructions reviewed with patient/family. Patient receptive and verbalizes understanding. Follow-up care arranged. Written instructions given to patient/family. ELIZABETH GONZALES
--- NOTE | 2019-04-07 07:50 | NUR ---
PHYSICAL THERAPY CO-SIGN I approve of the Physical Therapy notes written above. Chel Quintero PT
== END 2019-04-04 16:29 | disposition home health service (06) | DRG 640 ==
LOC: ED 09:47 → 4E 12:24 → EDHOLD 12:24 → 4E 12:46
PROVIDERS: Emergency Medicine; Internal Medicine; Internal Medicine Nephrology; ADMIT Family Medicine
PROC: 5A1D70Z Performance of Urinary Filtration, Intermittent, Less than 6 Hours Per Day (ICD-10-PCS; principal; 2019-03-29)
PROC: 5A1D70Z Performance of Urinary Filtration, Intermittent, Less than 6 Hours Per Day (ICD-10-PCS; 2019-04-01)
PROC: 5A1D70Z Performance of Urinary Filtration, Intermittent, Less than 6 Hours Per Day (ICD-10-PCS; 2019-04-03)
DX: E87.6 Hypokalemia (principal); N18.6 End stage renal disease; E43 Unspecified severe protein-calorie malnutrition; I50.32 Chronic diastolic (congestive) heart failure; K86.1 Other chronic pancreatitis; I13.2 Hypertensive heart and chronic kidney disease with heart failure and with stage 5 chronic kidney disease, or end stage renal disease; D61.818 Other pancytopenia; E87.5 Hyperkalemia; R26.2 Difficulty in walking, not elsewhere classified; I25.10 Atherosclerotic heart disease of native coronary artery without angina pectoris; L89.152 Pressure ulcer of sacral region, stage 2; E11.22 Type 2 diabetes mellitus with diabetic chronic kidney disease; E83.51 Hypocalcemia; E78.5 Hyperlipidemia, unspecified; Z99.2 Dependence on renal dialysis; Z90.49 Acquired absence of other specified parts of digestive tract; Z95.5 Presence of coronary angioplasty implant and graft; Z87.891 Personal history of nicotine dependence; Z83.3 Family history of diabetes mellitus; I25.2 Old myocardial infarction; Z79.899 Other long term (current) drug therapy; Z79.02 Long term (current) use of antithrombotics/antiplatelets; Z79.82 Long term (current) use of aspirin; Z68.21 Body mass index [BMI] 21.0-21.9, adult